=== PATIENT | female | born 2000 | race African-American/Black ===

== ENCOUNTER 2024-03-16 15:29 | Emergency (ER) | payer BC, SELFPAY ==
--- NOTE | 2024-03-16 15:36 | ED.GENADULT ---
HPI - General Adult General Chief complaint: Psychiatric Symptoms Stated complaint: doctor's note Time Seen by Provider: 03/16/24 15:59 Mode of arrival: ambulatory Limitations: no limitations History of Present Illness HPI narrative: 23-year-old female presents with concern for suicidal ideations. She reports for a couple of months she has been having thoughts of hurting herself. She reports history of cutting herself. She reports she plans to take pills to end her life. Related Data Home Medications Medication Instructions Recorded Confirmed norelgestromin 150 mcg-e.estradiol 1 patch transdermal WEEKLY 03/16/24 03/16/24 35 mcg/24 hr weekly transderm patch (Zafemy) Allergies Allergy/AdvReac Type Severity Reaction Status Date / Time No Known Allergies Allergy Verified 03/16/24 16:05 Review of Systems Review of Systems: CONSTITUTIONAL: Denies malaise, chills, sweats, or fever. PSYCHIATRIC: Reports depression and suicidal thoughts and plans All systems reviewed & are unremarkable except as noted in HPI and below PMFSH Comments At time of signature, agree with nursing past medical, surgical, social and family history. There is no relevant family history pertinent to the presenting complaint Exam Narrative: GENERAL: Well-appearing, well-nourished, and in no acute distress. HEAD: Normocephalic, atraumatic. EYES: PERRLA ENT: Nares clear. Mucous membranes moist. NECK: Supple. CHEST: No respiratory distress. Speaks in full sentences. HEART: Regular rate and rhythm. SKIN: Warm, dry, no visible rash. NEURO: Alert and oriented x3. PSYCH: Tearful Course Course Emergency Course: Patient is aware of , understands and agrees to be transferred to ED by EMS. Portions of this record may have been created with voice recognition software Level of Care: Express Care Visit Vital Signs Vital signs: Reviewed. Transfer Transfered to: [facility]: BLS Transfer rationale: Suicidal thoughts Accepting physician: Sunil Medical Decision Making MDM Narrative Medical decision making narrative: Patient's suicidal ideations and plan warrant further evaluation and treatment in the emergency room, need patient is nontoxic appearing and in no acute distress Critical Care Time Critical Care Time Critical Care Time: No Discharge Plan Discharge Clinical Impression: Suicidal ideation Patient Disposition: Acute Care Hospital Condition: Stable Prescriptions: No Action norelgestromin-ethin.estradiol [Zafemy] 150-35 mcg/24 hr patch weekly 1 patch transdermal WEEKLY Follow-up/Referrals: PHYSICIAN,PHARMACY INTAKE COORDINATOR [Primary Care Provider] - Time of Disposition: 16:20
[2024-03-16 15:43] VITALS: BP 111/79; PULSE 88; RESP 16; TEMP 36.8; O2SAT 100
== END 2024-03-16 16:27 | disposition short-term general hospital (02) ==
PROVIDERS: Emergency Provider Nurse Practitioner
DX: R45.851 Suicidal ideations (principal)
CPT/HCPCS: 99215; G0463